=== PATIENT | female | born 1990 | race Caucasian/White ===

== ENCOUNTER 2016-09-17 12:43 | Emergency (ER) | payer MEDICAID, OTHER ==
[~2016-09-17] VITALS: Ht 162.6 cm; Wt 55.8 kg
--- NOTE | 2016-09-17 12:45 | NUR ---
Patient to ER bed 2 to gown for evaluation. Side rails up. Triaged at bedside. Report given to Chanell SENIOR.
--- NOTE | 2016-09-17 12:50 | NUR ---
DR. HICKS AT BEDSIDE EXAMINING THE PT.
[2016-09-17 12:53] VITALS: BP_SYST 129
--- NOTE | 2016-09-17 12:55 | NUR ---
PT. TO ER AAOx4 WALKED IN WITH TOE PROBLEM. STATES THAT SHE RAN INTO THE DOOR AND HURT HER RIGHT FOOT TOE, STATES PAIN 6/10 DENIES ANY OTHER COMPLAINTS, CAP REFIL < 3 SECS ON RIGHT FOOT AND ALL OTHER EXTREMITIES
--- NOTE | 2016-09-17 13:00 | NUR ---
PT. OUT TO RADIOLOGY VIA WHEELCHAIR
--- NOTE | 2016-09-17 13:10 | NUR ---
PT. BACK FROM RADIOLOGY VIA WHEELCHAIR
[2016-09-17 13:25] VITALS: BP_SYST 121
--- NOTE | 2016-09-17 13:25 | NUR ---
Patient given written and verbal discharge instructions and verbalizes understanding. ER MD DR. HICKS discussed with patient the results and treatment provided. Patient in stable condition. ID arm band removed. Rx of MOTRIN given. Patient educated on pain management and to follow up with PMD. Pain Scale 0/10 Opportunity for questions provided and answered.
== END 2016-09-17 13:25 | disposition home or self-care (01) ==
LOC: SED 12:43
DX: S90.111A Contusion of right great toe without damage to nail, initial encounter (principal); W18.40XA Slipping, tripping and stumbling without falling, unspecified, initial encounter; Y93.02 Activity, running; Y92.89 Other specified places as the place of occurrence of the external cause; Y99.8 Other external cause status
CPT/HCPCS: 99284

== ENCOUNTER 2016-12-21 10:16 | Emergency (ER) | payer MEDICAID ==
[~2016-12-21] VITALS: Ht 162.6 cm; Wt 54.4 kg
[2016-12-21 10:16] VITALS: BP_SYST 124
--- NOTE | 2016-12-21 10:16 | NUR ---
BROUGHT BACK TO BED #8 AND TRIAGED. REPORT GIVEN TO DR KLAUS MAYEN AT BEDSIDE FOR EVALUATION
--- NOTE | 2016-12-21 10:20 | NUR ---
ER at bedside examining patient.
--- NOTE | 2016-12-21 10:40 | NUR ---
Received patient alert, awake, oriented, cc of SOB and slightly dizzy. dx of SOB. saturation 99% on room air. no past medical.informed about the POC. verbalized understanding.
[2016-12-21 10:57] LABS: BILIRUBIN,URINE NEGATIVE (NEGATIVE); BLOOD, URINE NEGATIVE (NEGATIVE); CLARITY/URINE SL HAZY (CLEAR); COLOR,URINE YELLOW (YELLOW); GLUCOSE,URINE NEGATIVE (NEGATIVE); KETONES,URINE NEGATIVE (NEGATIVE); LEUKOCYTE ESTERASE ,URINE 1+ (NEGATIVE); NITRITE, URINE NEGATIVE (NEGATIVE); PROTEIN URINE NEGATIVE (NEGATIVE); UROBILINOGEN,URINE 0.2 (0.2-1.0)
--- NOTE | 2016-12-21 11:00 | NUR ---
CXR done at bedside.
[2016-12-21 11:07] LABS: BACTERIA,URINE MODERATE /HPF (None Seen); RBC,URINE 0-3 /HPF (0-3)
[2016-12-21 11:08] LABS: MUCUS,URINE 2+ /LPF (None Seen)
[2016-12-21 11:12] LABS: BASOPHILS % (AUTO) 0.4 % (0.0-2.0); EOSINOPHILS # (AUTO) 0.1 K/uL (0.0-0.4); EOSINOPHILS % (AUTO) 0.9 % (0.0-4.0); HEMOGLOBIN 12.6 g/dL (12.0-16.0); LYMPHOCYTES # (AUTO) 2.3 K/uL (1.0-5.5); LYMPHOCYTES % (AUTO) 25.4 % (20.5-51.5); MEAN CORPUSCULAR HEMOGLOBIN 31 pg (27-31); MEAN CORPUSCULAR HGB CONC 34 % (32-36); MEAN CORPUSCULAR VOLUME 90 fL (79.0-98.0); MONOCYTES # (AUTO) 0.6 K/uL (0.0-1.0); MONOCYTES % (AUTO) 6.7 % (1.7-9.3); NEUTROPHILS # (AUTO) 6.2 K/uL (1.8-7.7); NEUTROPHILS % (AUTO) 66.6 % (40.0-70.0); PLATELET COUNT (AUTO) 166 K/uL (130-430); RED CELL DISTRIBUTION WIDTH 11.5 % (9.0-15.0); WHITE BLOOD COUNT (AUTO) 9.2 K/uL (4.8-10.8)
[2016-12-21 11:16] LABS: BARBITURATE, URINE NEGATIVE (NEG <=200); BENZODIAZEPINE, URINE NEGATIVE (NEG <=150); CANNABINOID, URINE NEGATIVE (NEG <=50); COCAINE, URINE NEGATIVE (NEG <=150); METHAMPHETAMINES SCREEN,URINE NEGATIVE (NEG <=500); OPIATE, URINE NEGATIVE (NEG <=100); PHENCYCLIDINE SCREEN,URINE NEGATIVE (NEG <=25); UR TRICYCLIC ANTIDEPRESSANTS NEGATIVE (NEG <=300); URINE AMPHETAMINE NEGATIVE (NEG <=500); URINE METHADONE NEGATIVE (NEG <=200); URINE OXYCODONE SCREEN NEGATIVE (NEG <=100); URINE PROPOXYPHENE SCREEN NEGATIVE (NEG <=300)
[2016-12-21 11:21] LABS: CREATININE 0.73 mg/dL (0.55-1.30); POTASSIUM 3.8 mmol/L (3.5-5.1)
[2016-12-21 11:23] LABS: PROTHROMBIN TIME 11.2 SECS (9.5-12.5)
[2016-12-21 11:26] LABS: ALBUMIN 3.9 g/dL (3.4-4.8); TOTAL BILIRUBIN 0.4 mg/dL (0.0-1.0); TOTAL PROTEIN, SERUM 7.4 g/dL (6.4-8.3)
[2016-12-21] MEDS ORDERED: NACL 0.9% 1,000 ML IV ONE (12:00)
--- NOTE | 2016-12-21 12:05 | NUR ---
PT STATES THAT SHE STILL GETS DIZZY WHEN CLOSING HER EYES, IVF INFUSING WELL.
[2016-12-21] MEDS ORDERED: IBUPROFEN 600 MG TABLET PO ONE (12:45)
[2016-12-21 13:17] VITALS: BP_SYST 116
--- NOTE | 2016-12-21 13:18 | NUR ---
Patient given written and verbal discharge instructions and verbalizes understanding. ER MD discussed with patient the results and treatment provided. Patient in stable condition. ID arm band removed. IV catheter removed intact and dressing applied, no active bleeding. Rx of bactrim given. Patient educated on pain management and to follow up with PMD. Pain Scale 0. Opportunity for questions provided and answered.
== END 2016-12-21 13:17 | disposition home or self-care (01) ==
LOC: SED 10:16
DX: N39.0 Urinary tract infection, site not specified (principal)
CPT/HCPCS: 36415; 71010; 80053; 80307; 81000; 81025; 83880; 84484; 85025; 85379; 85610; 85730; 87086; 93005; 96360; 99285; J7030